=== PATIENT | female | born 1980 | race Caucasian/White ===

== ENCOUNTER 2019-11-06 12:11 | Inpatient (IN) | payer OTHER ==
[~2019-11-06] VITALS: Ht 162.6 cm; Wt 87.0 kg
[2019-11-06] MEDS ORDERED: DOCUSATE 100 MG CAPSULE PO PRN (13:30)
[2019-11-06] MEDS ORDERED: ONDANSETRON ODT 4 MG PO PRN (13:30)
[2019-11-06] MEDS ORDERED: PLEASE ENTER HEIGHT AND WEIGHT MC SCH (13:30)
[2019-11-06] MEDS ORDERED: PLEASE ENTER ALLERGIES MC SCH (13:30)
[2019-11-06] MEDS ORDERED: ENALAPRILAT 1.25 MG/ML, 2ML IVPush PRN (13:30)
[2019-11-06] MEDS ORDERED: ENOXAPARIN 40 MG/0.4 ML SQ SCH (13:30)
[2019-11-06] MEDS ORDERED: OMNIPAQUE 350 MG/ML, 50 ML BOTTLE ONE (13:35)
[2019-11-06] MEDS ORDERED: FERR324T5 PO (13:45)
[2019-11-06] MEDS ORDERED: ALBU8.5H8 IH (13:45)
[2019-11-06] MEDS ORDERED: LEVO150T5 PO (13:45)
[2019-11-06] MEDS: HYDROcodone/APAP 5/325 TABLET PO PRN ×2 (14:19→22:38)
[2019-11-06] MEDS: LACTATED RINGERS 1,000 ML IV SCH ×2 (14:20→19:26)
[2019-11-06] MEDS ORDERED: ALBUTEROL HFA 90 MCG/SPRAY INH PRN (14:30)
[2019-11-06 14:32] VITALS: BP 122/79
[2019-11-06] MEDS ORDERED: MIDAZOLAM 1 MG/ML, 2ML ONE (15:14)
[2019-11-06] MEDS ORDERED: FENTANYL PF 250 MCG/5ML ONE (15:14)
[2019-11-06] MEDS ORDERED: PROPOFOL 50 ML ONE (15:14)
[2019-11-06] MEDS ORDERED: ROCURONIUM 10 MG/ML,10ML ONE (15:36)
[2019-11-06] MEDS ORDERED: CEFAZOLIN PMX 1GM/50ML ONE (15:36)
[2019-11-06] MEDS ORDERED: SUCCINYLCHOLINE 20 MG/ML, 10ML ONE (15:36)
[2019-11-06] MEDS ORDERED: DIPHENHYDRAMINE 50 MG/ML, 1ML IVPush PRN (16:00)
[2019-11-06] MEDS ORDERED: EPHEDRINE 50 MG/ML, 1ML IM PRN (16:00)
[2019-11-06] MEDS ORDERED: DIAZEPAM 5 MG/ML, 2ML IVPush PRN (16:00)
[2019-11-06] MEDS ORDERED: ONDANSETRON 2MG/ML, 2ML IVPush PRN (16:00)
[2019-11-06] MEDS ORDERED: OXYcodone 5 MG/5 ML ORAL.SOL UDC PO PRN (16:00)
[2019-11-06] MEDS ORDERED: LABETALOL 5MG/ML, 20ML IV PRN (16:00)
[2019-11-06] MEDS ORDERED: FENTANYL PF 100 MCG/2ML IV PRN (16:00)
[2019-11-06] MEDS ORDERED: PROMETHAZINE 25 MG/ML, 1ML IVPush PRN (16:00)
[2019-11-06] MEDS ORDERED: MEPERIDINE/PF 25MG/0.5ML IVPush PRN (16:00)
[2019-11-06] MEDS ORDERED: HYDROmorphone 1 MG/ML, 1ML INJ IVPush PRN (16:00)
[2019-11-06] MEDS ORDERED: EPHEDRINE 50 MG/ML, 1ML IVPush PRN (16:00)
[2019-11-06] MEDS ORDERED: INDOMETHACIN 50 MG SUPP.RECT ONE (16:16)
[2019-11-06] MEDS ORDERED: INDOMETHACIN 50 MG SUPP.RECT PR ONE (16:30)
[2019-11-06] MEDS ORDERED: LACTATED RINGERS 1,000 ML IVBOLUS ONE ×2 (16:30)
[2019-11-06] MEDS ORDERED: [UNRECOGNIZED DRUG - REMARK] MC PRN (17:30)
[2019-11-06] MEDS: morphine SULFATE 10 MG/ML, 1ML IVPush PRN ×2 (17:49→23:37)
[2019-11-06 19:35] VITALS: BP 144/93
[2019-11-06 23:22] VITALS: BP 132/81
[2019-11-07 02:47] VITALS: BP 113/71
[2019-11-07 05:39] LABS: BASOPHILS # (AUTO) 0.03 x10^3/uL (0-0.1); BASOPHILS % (AUTO) 0 % (0-1); EOSINOPHILS # (AUTO) 0.01 x10^3/uL (0-0.4); EOSINOPHILS % (AUTO) 0 % (1-7); LYMPHOCYTES # (AUTO) 0.81 x10^3/uL (1-3.4); LYMPHOCYTES % (AUTO) 10 % (22-44); MD NO; MEAN CORPUSCULAR HEMOGLOBIN 26.5 pg (27.0-34.8); MEAN CORPUSCULAR HGB CONC 32.6 g/dL (32.4-35.8); MEAN CORPUSCULAR VOLUME 81.4 fL (80-100); MEAN PLATELET VOLUME 10.5 fL (7.4-10.4); MONOCYTES # (AUTO) 0.51 x10^3/uL (0.2-0.8); MONOCYTES % (AUTO) 6 % (2-9); NEUTROPHILS # (AUTO) 6.91 x10^3/uL (1.8-6.8); NEUTROPHILS % (AUTO) 84 % (42-75); PLATELET COUNT 227 x10^3/uL (130-400); RED BLOOD COUNT 3.21 x10^6/uL (3.82-5.3); RED CELL DISTRIBUTION WIDTH 14.7 % (9.6-15.2)
[2019-11-07 05:48] LABS: ALBUMIN 2.5 g/dL (3.4-5.0); ANION GAP 6 mmol/L (5-15); CALCIUM 8.4 mg/dL (8.5-10.1); CHLORIDE 110 mmol/L (98-107)
[2019-11-07 05:53] LABS: ALANINE AMINOTRANSFERASE 61 U/L (12-78); ALKALINE PHOSPHATASE 95 U/L (45-117); BILIRUBIN,TOTAL 0.6 mg/dL (0.2-1.0); CREATININE 0.62 mg/dL (0.55-1.02)
[2019-11-07] MEDS: LEVOTHYROXINE 150 MCG TABLET PO SCH (06:26)
[2019-11-07 07:00] VITALS: BP 113/75
[2019-11-07] MEDS: FERROUS SULFATE 325 MG TABLET PO SCH (08:00)
[2019-11-07] MEDS: morphine SULFATE 10 MG/ML, 1ML IVPush PRN (08:34)
[2019-11-07 11:16] VITALS: BP 122/79
[2019-11-07] MEDS: SENNA/DOCUSATE TABLET PO SCH (11:23)
[2019-11-07] MEDS: LACTATED RINGERS 1,000 ML IV SCH (11:30)
[2019-11-07 14:50] VITALS: BP 104/64
[2019-11-07 20:26] VITALS: BP 109/66
[2019-11-07] MEDS: LACTULOSE 10 GM/15 ML UDC PO SCH (20:46)
[2019-11-07] MEDS: ONDANSETRON 2MG/ML, 2ML IVPush PRN (20:51)
[2019-11-07] MEDS: HYDROcodone/APAP 5/325 TABLET PO PRN (20:56)
[2019-11-08] MEDS: LACTATED RINGERS 1,000 ML IV SCH (00:58)
[2019-11-08] MEDS: ACETAMINOPHEN 325 MG TABLET PO PRN ×3 (01:01→19:55)
[2019-11-08] MEDS: DIPHENHYDRAMINE 25 MG CAPSULE PO PRN ×2 (01:01→19:54)
[2019-11-08 02:18] VITALS: BP 103/65
[2019-11-08] MEDS: LEVOTHYROXINE 150 MCG TABLET PO SCH (06:11)
[2019-11-08] MEDS: LACTULOSE 10 GM/15 ML UDC PO SCH ×2 (07:45→20:17)
[2019-11-08] MEDS: FERROUS SULFATE 325 MG TABLET PO SCH (07:45)
[2019-11-08] MEDS: SENNA/DOCUSATE TABLET PO SCH (07:45)
[2019-11-08 07:56] VITALS: BP 110/71
[2019-11-08 12:39] VITALS: BP 120/78
[2019-11-08] MEDS: morphine SULFATE 10 MG/ML, 1ML IVPush PRN ×5 (12:46→19:02)
[2019-11-08] MEDS ORDERED: MORPHINE SULFATE 4 MG/ML, 1ML ONE (13:21)
[2019-11-08] MEDS ORDERED: OMNIPAQUE 350 MG/ML, 100ML BOTTLE ONE (13:54)
[2019-11-08] MEDS ORDERED: FLUMAZENIL 0.1 MG/1 ML, 5ML ONE (14:05)
[2019-11-08] MEDS ORDERED: FENTANYL PF 100 MCG/2ML ONE (14:05)
[2019-11-08] MEDS ORDERED: MIDAZOLAM 1 MG/ML, 5ML ONE (14:05)
[2019-11-08] MEDS ORDERED: NALOXONE 1 MG/ML, 2ML ONE (14:05)
[2019-11-08] MEDS ORDERED: LIDOCAINE 1%, 10ML ONE (14:09)
[2019-11-08 15:00] VITALS: BP 104/67
[2019-11-08 15:26] LABS: ANION GAP 5 mmol/L (5-15); CALCIUM 8.1 mg/dL (8.5-10.1); CHLORIDE 113 mmol/L (98-107); CREATININE 0.61 mg/dL (0.55-1.02)
[2019-11-08 15:29] LABS: MEAN CORPUSCULAR HEMOGLOBIN 26.4 pg (27.0-34.8); MEAN CORPUSCULAR HGB CONC 32.6 g/dL (32.4-35.8); MEAN PLATELET VOLUME 9.6 fL (7.4-10.4); PLATELET COUNT 249 x10^3/uL (130-400); RED BLOOD COUNT 3.33 x10^6/uL (3.82-5.3); RED CELL DISTRIBUTION WIDTH 14.8 % (9.6-15.2)
[2019-11-08 16:30] VITALS: BP 129/75
[2019-11-08 16:38] LABS: BASOPHILS # (AUTO) 0.06 x10^3/uL (0-0.1); BASOPHILS % (AUTO) 0 % (0-1); EOSINOPHILS # (AUTO) 0.08 x10^3/uL (0-0.4); EOSINOPHILS % (AUTO) 1 % (1-7); LYMPHOCYTES # (AUTO) 1.06 x10^3/uL (1-3.4); LYMPHOCYTES % (AUTO) 7 % (22-44); MD SCAN; MONOCYTES % (AUTO) 8 % (2-9); NEUTROPHILS # (AUTO) 12.03 x10^3/uL (1.8-6.8); NEUTROPHILS % (AUTO) 84 % (42-75)
[2019-11-08] MEDS: DIAZEPAM 5 MG/ML, 2ML IV PRN (17:01)
[2019-11-08] MEDS: CEFTRIAXONE PMX 1GM/50ML 50 ML IV SCH (17:22)
[2019-11-08] MEDS: METRONIDAZOLE PMX 500MG/100ML 100 ML IV SCH (18:01)
[2019-11-08 19:57] VITALS: BP 98/63
[2019-11-08] MEDS: ONDANSETRON 2MG/ML, 2ML IVPush PRN (21:31)
[2019-11-09 01:00] VITALS: BP 99/60
[2019-11-09] MEDS: morphine SULFATE 10 MG/ML, 1ML IVPush PRN ×3 (01:11→15:50)
[2019-11-09] MEDS: METOCLOPRAMIDE 5 MG/ML, 2ML IVPush PRN ×4 (01:11→17:28)
[2019-11-09] MEDS: ACETAMINOPHEN 325 MG TABLET PO PRN ×4 (01:19→22:02)
[2019-11-09] MEDS: METRONIDAZOLE PMX 500MG/100ML 100 ML IV SCH ×3 (02:05→18:24)
[2019-11-09 02:08] LABS: MICROSCOPIC NOT IND
[2019-11-09] MEDS: ONDANSETRON 2MG/ML, 2ML IVPush PRN ×3 (03:55→22:02)
[2019-11-09 03:58] VITALS: BP 90/56
[2019-11-09] MEDS: LEVOTHYROXINE 150 MCG TABLET PO SCH (05:51)
[2019-11-09 08:29] VITALS: BP 100/66
[2019-11-09] MEDS: LACTULOSE 10 GM/15 ML UDC PO SCH ×2 (09:22→21:00)
[2019-11-09] MEDS: CYCLOBENZAPRINE 10 MG TABLET PO PRN ×2 (09:22→22:02)
[2019-11-09] MEDS: FERROUS SULFATE 325 MG TABLET PO SCH (09:22)
[2019-11-09] MEDS: SENNA/DOCUSATE TABLET PO SCH (09:22)
[2019-11-09] MEDS ORDERED: VANCOMYCIN PER PHARMACY MC PRN (13:30)
[2019-11-09 13:33] VITALS: BP 102/56
[2019-11-09] MEDS ORDERED: PHARMACOKINETIC MONITORING MC PRN (14:00)
[2019-11-09 15:11] LABS: HCT (SEDRATE) 25.7 % (34.6-47.8)
[2019-11-09] MEDS: VANCOMYCIN 1,800 MG in SODIUM CHLORIDE 0.9% 250 ML IV SCH (15:50)
[2019-11-09] MEDS ORDERED: KETOROLAC 30 MG/1 ML IM PRN (16:30)
[2019-11-09] MEDS ORDERED: FAMOTIDINE 20 MG TABLET PO ONE (17:00)
[2019-11-09 17:29] VITALS: BP 106/69
[2019-11-09] MEDS: CEFTRIAXONE PMX 1GM/50ML 50 ML IV SCH (17:34)
[2019-11-09 21:45] VITALS: BP 95/59
[2019-11-09] MEDS: DIPHENHYDRAMINE 25 MG CAPSULE PO PRN (22:02)
[2019-11-10] MEDS: METRONIDAZOLE PMX 500MG/100ML 100 ML IV SCH ×2 (01:33→09:58)
[2019-11-10] MEDS: KETOROLAC 30 MG/1 ML IVPush PRN ×4 (01:33→20:40)
[2019-11-10 01:34] VITALS: BP 101/69
[2019-11-10] MEDS: VANCOMYCIN 1,800 MG in SODIUM CHLORIDE 0.9% 250 ML IV SCH (03:35)
[2019-11-10] MEDS: ACETAMINOPHEN 325 MG TABLET PO PRN ×4 (05:19→22:34)
[2019-11-10] MEDS: LEVOTHYROXINE 150 MCG TABLET PO SCH (05:19)
[2019-11-10 05:46] LABS: BASOPHILS # (AUTO) 0.09 x10^3/uL (0-0.1); BASOPHILS % (AUTO) 1 % (0-1); EOSINOPHILS # (AUTO) 0.21 x10^3/uL (0-0.4); EOSINOPHILS % (AUTO) 2 % (1-7); LYMPHOCYTES # (AUTO) 1.12 x10^3/uL (1-3.4); LYMPHOCYTES % (AUTO) 11 % (22-44); MD NO; MEAN CORPUSCULAR HEMOGLOBIN 26.3 pg (27.0-34.8); MEAN CORPUSCULAR HGB CONC 32.4 g/dL (32.4-35.8); MEAN CORPUSCULAR VOLUME 81.1 fL (80-100); MEAN PLATELET VOLUME 10.2 fL (7.4-10.4); MONOCYTES # (AUTO) 0.62 x10^3/uL (0.2-0.8); MONOCYTES % (AUTO) 6 % (2-9); NEUTROPHILS # (AUTO) 8.52 x10^3/uL (1.8-6.8); NEUTROPHILS % (AUTO) 81 % (42-75); PLATELET COUNT 221 x10^3/uL (130-400); RED BLOOD COUNT 3.31 x10^6/uL (3.82-5.3); RED CELL DISTRIBUTION WIDTH 15.1 % (9.6-15.2)
[2019-11-10 05:56] LABS: ALBUMIN 2.2 g/dL (3.4-5.0); ANION GAP 7 mmol/L (5-15); CALCIUM 8.2 mg/dL (8.5-10.1); CHLORIDE 111 mmol/L (98-107)
[2019-11-10 06:00] LABS: ALANINE AMINOTRANSFERASE 28 U/L (12-78); ALKALINE PHOSPHATASE 93 U/L (45-117); BILIRUBIN,TOTAL 0.6 mg/dL (0.2-1.0); CREATININE 0.68 mg/dL (0.55-1.02); TOTAL PROTEIN 5.8 g/dL (6.4-8.2)
[2019-11-10] MEDS: LACTULOSE 10 GM/15 ML UDC PO SCH ×2 (07:14→20:40)
[2019-11-10] MEDS: SENNA/DOCUSATE TABLET PO SCH (07:15)
[2019-11-10] MEDS ORDERED: POTASSIUM CHLORIDE 40 MEQ in SODIUM CHLORIDE 0.9% 500 ML IV ONE (07:30)
[2019-11-10] MEDS: FERROUS SULFATE 325 MG TABLET PO SCH (07:34)
[2019-11-10] MEDS: CYCLOBENZAPRINE 10 MG TABLET PO PRN (07:35)
[2019-11-10 07:44] VITALS: BP 103/69
[2019-11-10 13:46] VITALS: BP 100/55
[2019-11-10] MEDS: AMPICILLIN/SULBACTAM 3 GM in SODIUM CHLORIDE 0.9% 100 ML IV SCH ×2 (15:26→20:40)
[2019-11-10 18:06] LABS: BASOPHILS # (AUTO) 0.03 x10^3/uL (0-0.1); BASOPHILS % (AUTO) 0 % (0-1); EOSINOPHILS # (AUTO) 0.26 x10^3/uL (0-0.4); EOSINOPHILS % (AUTO) 3 % (1-7); LYMPHOCYTES # (AUTO) 1.13 x10^3/uL (1-3.4); LYMPHOCYTES % (AUTO) 12 % (22-44); MD NO; MEAN CORPUSCULAR HEMOGLOBIN 26.2 pg (27.0-34.8); MEAN CORPUSCULAR HGB CONC 32.2 g/dL (32.4-35.8); MEAN CORPUSCULAR VOLUME 81.2 fL (80-100); MEAN PLATELET VOLUME 10.1 fL (7.4-10.4); MONOCYTES # (AUTO) 0.41 x10^3/uL (0.2-0.8); MONOCYTES % (AUTO) 4 % (2-9); NEUTROPHILS # (AUTO) 7.69 x10^3/uL (1.8-6.8); NEUTROPHILS % (AUTO) 81 % (42-75); PLATELET COUNT 288 x10^3/uL (130-400); RED BLOOD COUNT 3.44 x10^6/uL (3.82-5.3); RED CELL DISTRIBUTION WIDTH 15.2 % (9.6-15.2)
[2019-11-10 18:10] LABS: ALBUMIN 2.6 g/dL (3.4-5.0); ANION GAP 7 mmol/L (5-15); CALCIUM 8.4 mg/dL (8.5-10.1); CHLORIDE 111 mmol/L (98-107)
[2019-11-10 18:13] LABS: ALANINE AMINOTRANSFERASE 30 U/L (12-78); ALKALINE PHOSPHATASE 116 U/L (45-117); BILIRUBIN,TOTAL 0.4 mg/dL (0.2-1.0); CREATININE 0.81 mg/dL (0.55-1.02)
[2019-11-10 20:01] VITALS: BP 108/63
[2019-11-10] MEDS: DIPHENHYDRAMINE 25 MG CAPSULE PO PRN (20:40)
[2019-11-10] MEDS: DIAZEPAM 5 MG/ML, 2ML IV PRN (22:37)
[2019-11-11 01:31] VITALS: BP 114/74
[2019-11-11] MEDS: ACETAMINOPHEN 325 MG TABLET PO PRN ×3 (02:49→19:29)
[2019-11-11] MEDS: KETOROLAC 30 MG/1 ML IVPush PRN ×3 (02:49→20:26)
[2019-11-11] MEDS: AMPICILLIN/SULBACTAM 3 GM in SODIUM CHLORIDE 0.9% 100 ML IV SCH ×4 (02:49→20:26)
[2019-11-11] MEDS: LEVOTHYROXINE 150 MCG TABLET PO SCH (06:33)
[2019-11-11 06:38] VITALS: BP 125/87
[2019-11-11] MEDS: LACTULOSE 10 GM/15 ML UDC PO SCH ×2 (08:31→20:26)
[2019-11-11] MEDS: SENNA/DOCUSATE TABLET PO SCH (08:31)
[2019-11-11] MEDS: FERROUS SULFATE 325 MG TABLET PO SCH (08:32)
[2019-11-11] MEDS ORDERED: ZOLPIDEM 5MG TABLET PO PRN (12:00)
[2019-11-11 12:48] VITALS: BP 123/78
[2019-11-11 19:19] VITALS: BP 142/86
[2019-11-12] MEDS: AMPICILLIN/SULBACTAM 3 GM in SODIUM CHLORIDE 0.9% 100 ML IV SCH ×4 (03:00→20:57)
[2019-11-12] MEDS: ACETAMINOPHEN 325 MG TABLET PO PRN ×3 (03:00→20:58)
[2019-11-12] MEDS: CYCLOBENZAPRINE 10 MG TABLET PO PRN (03:00)
[2019-11-12 03:06] VITALS: BP 136/87
[2019-11-12] MEDS: CALCIUM CARBONATE 500 MG TAB.CHEW PO PRN (03:28)
[2019-11-12] MEDS: LEVOTHYROXINE 150 MCG TABLET PO SCH (05:56)
[2019-11-12 08:01] VITALS: BP 142/91
[2019-11-12] MEDS: LACTULOSE 10 GM/15 ML UDC PO SCH ×2 (08:30→20:57)
[2019-11-12] MEDS: SENNA/DOCUSATE TABLET PO SCH (08:31)
[2019-11-12] MEDS: FERROUS SULFATE 325 MG TABLET PO SCH (08:31)
[2019-11-12 13:21] VITALS: BP 131/83
[2019-11-12] MEDS ORDERED: OMNIPAQUE 350 MG/ML, 100ML BOTTLE ONE (13:56)
[2019-11-12 19:24] VITALS: BP 132/85
[2019-11-13 01:46] VITALS: BP 129/79
[2019-11-13] MEDS: AMPICILLIN/SULBACTAM 3 GM in SODIUM CHLORIDE 0.9% 100 ML IV SCH ×2 (02:59→10:23)
[2019-11-13] MEDS: CALCIUM CARBONATE 500 MG TAB.CHEW PO PRN (03:04)
[2019-11-13] MEDS: ONDANSETRON 2MG/ML, 2ML IVPush PRN (03:04)
[2019-11-13] MEDS: LEVOTHYROXINE 150 MCG TABLET PO SCH (06:10)
[2019-11-13] MEDS: ACETAMINOPHEN 325 MG TABLET PO PRN (06:10)
[2019-11-13] MEDS: KETOROLAC 30 MG/1 ML IVPush PRN (06:10)
[2019-11-13 06:49] LABS: ALBUMIN 2.5 g/dL (3.4-5.0); ANION GAP 5 mmol/L (5-15); CALCIUM 8.5 mg/dL (8.5-10.1); CHLORIDE 111 mmol/L (98-107)
[2019-11-13 06:55] LABS: ALANINE AMINOTRANSFERASE 30 U/L (12-78); ALKALINE PHOSPHATASE 77 U/L (45-117); BILIRUBIN,TOTAL 0.3 mg/dL (0.2-1.0); CREATININE 0.68 mg/dL (0.55-1.02); TOTAL PROTEIN 6.2 g/dL (6.4-8.2)
[2019-11-13 07:31] VITALS: BP 143/87
[2019-11-13] MEDS: LACTULOSE 10 GM/15 ML UDC PO SCH (08:20)
[2019-11-13] MEDS: SENNA/DOCUSATE TABLET PO SCH (08:21)
[2019-11-13] MEDS: FERROUS SULFATE 325 MG TABLET PO SCH (08:21)
[2019-11-13] MEDS ORDERED: IBUP100O32 PO (10:29)
[2019-11-13] MEDS ORDERED: DAPTOMYCIN 520 MG in SODIUM CHLORIDE 0.9% 100 ML IVPB SCH (10:30)
[2019-11-13 12:42] VITALS: BP 125/85
== END 2019-11-13 14:00 | disposition home or self-care (01) | DRG 393 ==
LOC: PREOBSVTOIN 12:12 → 4NE 13:10
PROVIDERS: ADMIT Hospitalist; ATTEND Family Medicine
PROC: BF111ZZ Fluoroscopy of Biliary and Pancreatic Ducts using Low Osmolar Contrast (ICD-10-PCS; 2019-11-06)
PROC: 0F798DZ Dilation of Common Bile Duct with Intraluminal Device, Via Natural or Artificial Opening Endoscopic (ICD-10-PCS; principal; 2019-11-06 15:00)
PROC: 0F9430Z Drainage of Gallbladder with Drainage Device, Percutaneous Approach (ICD-10-PCS; 2019-11-08)
PROC: 02HV33Z Insertion of Infusion Device into Superior Vena Cava, Percutaneous Approach (ICD-10-PCS; 2019-11-08)
PROC: B548ZZA Ultrasonography of Superior Vena Cava, Guidance (ICD-10-PCS; 2019-11-08)
PROC: B518ZZA Fluoroscopy of Superior Vena Cava, Guidance (ICD-10-PCS; 2019-11-08)
PROC: 0FP4X0Z Removal of Drainage Device from Gallbladder, External Approach (ICD-10-PCS; 2019-11-08)
DX: K91.89 Other postprocedural complications and disorders of digestive system (principal); K65.1 Peritoneal abscess; T81.44XA Sepsis following a procedure, initial encounter; J44.1 Chronic obstructive pulmonary disease with (acute) exacerbation; K81.0 Acute cholecystitis; Z20.828 Contact with and (suspected) exposure to other viral communicable diseases; B95.2 Enterococcus as the cause of diseases classified elsewhere; Y83.8 Other surgical procedures as the cause of abnormal reaction of the patient, or of later complication, without mention of misadventure at the time of the procedure; D50.9 Iron deficiency anemia, unspecified; E03.9 Hypothyroidism, unspecified; E87.6 Hypokalemia; I10 Essential (primary) hypertension; I34.1 Nonrheumatic mitral (valve) prolapse; D50.0 Iron deficiency anemia secondary to blood loss (chronic); N92.0 Excessive and frequent menstruation with regular cycle; J45.20 Mild intermittent asthma, uncomplicated; Z90.49 Acquired absence of other specified parts of digestive tract; Z79.899 Other long term (current) drug therapy; Z82.5 Family history of asthma and other chronic lower respiratory diseases; Z82.49 Family history of ischemic heart disease and other diseases of the circulatory system; Z95.2 Presence of prosthetic heart valve
CPT/HCPCS: 36415; 74328; 75989; J3490; 36573; 47537; 49406; 74160; 74177; 76942; 80048; 80053; 81003; 81025; 83735; 85025; 85651; 86140; 87040; 87070; 87075; 87077; 87186; 87205; 87635; 99156; 99157; C1894; G0378; J0295; J0690; J0696; J0878; J1885; J2250; J2405; J2704; J3010; J3360; J3370; J3480; Q0162; Q9967; C1729; C1751; C1769; C2625; J0330; J2270; J2310; J2765; J7040; J7050; J7120; Q0163

== ENCOUNTER 2020-03-22 08:04 | Day surgery (SDC) | payer OTHER ==
[2020-03-19 14:56] LABS: BASOPHILS % (AUTO) 0 % (0-1); EOSINOPHILS % (AUTO) 2 % (1-7); LYMPHOCYTES % (AUTO) 26 % (22-44); MEAN CORPUSCULAR HEMOGLOBIN 27.3 pg (27.0-34.8); MEAN CORPUSCULAR HGB CONC 33.4 g/dL (32.4-35.8); MEAN PLATELET VOLUME 9.3 fL (7.4-10.4); MONOCYTES % (AUTO) 5 % (2-9); NEUTROPHILS % (AUTO) 67 % (42-75); PLATELET COUNT 274 x10^3/uL (130-400); RED BLOOD COUNT 4.37 x10^6/uL (3.82-5.3); RED CELL DISTRIBUTION WIDTH 13.5 % (9.6-15.2)
[2020-03-19 15:02] LABS: MD NO
[~2020-03-22] VITALS: Ht 162.6 cm; Wt 87.0 kg
[~2020-03-22 08:04] MED LIST: ALBU8.5H8 IH; CHOL10003 PO; FERR324T5 PO; IBUP100O32 PO; LEVO125T5 PO; LEVO150T5 PO
[2020-03-22 08:28] VITALS: BP 129/83
[2020-03-22] MEDS ORDERED: LACTATED RINGERS 1,000 ML IV SCH (08:30)
[2020-03-22] MEDS ORDERED: CHLORHEXIDINE 15 ML UDC MM ONE (08:30)
[2020-03-22 08:58] LABS: HCG UR SG 1.021 (1.003-1.030)
[2020-03-22] MEDS ORDERED: MIDAZOLAM 1 MG/ML, 2ML ONE (09:14)
[2020-03-22] MEDS ORDERED: FENTANYL PF 250 MCG/5ML ONE (09:14)
[2020-03-22] MEDS ORDERED: ONDANSETRON 2MG/ML, 2ML ONE (09:35)
[2020-03-22] MEDS ORDERED: NEOSTIGMINE 1 MG/ML, 10ML ONE (09:35)
[2020-03-22] MEDS ORDERED: ROCURONIUM 10MG/ML,5ML ONE (09:35)
[2020-03-22] MEDS ORDERED: DEXAMETHASONE 4 MG/ML, 1ML ONE (09:35)
[2020-03-22] MEDS ORDERED: GLYCOPYRROLATE 0.2MG/1ML, 5ML ONE (09:35)
[2020-03-22] MEDS ORDERED: OMNIPAQUE 350 MG/ML, 50 ML BOTTLE ONE (10:15)
[2020-03-22] MEDS ORDERED: INDOMETHACIN 50 MG SUPP.RECT ONE (10:16)
[2020-03-22] MEDS ORDERED: FENTANYL PF 100 MCG/2ML ONE (10:25)
[2020-03-22] MEDS: FENTANYL PF 100 MCG/2ML IV PRN ×2 (10:25→10:36)
[2020-03-22] MEDS ORDERED: ONDANSETRON 2MG/ML, 2ML IVPush PRN (10:30)
[2020-03-22] MEDS ORDERED: OXYcodone 5 MG/5 ML ORAL.SOL UDC PO PRN (10:30)
[2020-03-22] MEDS ORDERED: OXYcodone 5 MG/5 ML ORAL.SOL UDC ONE (10:54)
[2020-03-22] MEDS ORDERED: PROPOFOL 50 ML ONE ×2 (10:55→11:05)
[2020-03-22] MEDS ORDERED: INDOMETHACIN 50 MG SUPP.RECT PR ONE (11:00)
[2020-03-22] MEDS ORDERED: LACTATED RINGERS 1,000 ML IVBOLUS ONE (11:00)
== END 2020-03-22 12:35 | disposition home or self-care (01) ==
LOC: OUT 08:04
PROVIDERS: ATTEND Internal Medicine Gastroenterology
DX: T85.590A Other mechanical complication of bile duct prosthesis, initial encounter (principal); I10 Essential (primary) hypertension; J45.909 Unspecified asthma, uncomplicated; E03.9 Hypothyroidism, unspecified; Z20.822 Contact with and (suspected) exposure to COVID-19; Z79.890 Hormone replacement therapy; Z79.899 Other long term (current) drug therapy; Z88.5 Allergy status to narcotic agent; Z88.2 Allergy status to sulfonamides; Z90.49 Acquired absence of other specified parts of digestive tract; Y83.8 Other surgical procedures as the cause of abnormal reaction of the patient, or of later complication, without mention of misadventure at the time of the procedure
CPT/HCPCS: 36415; 43275; 43277; 74328; 81025; 85025; J1100; J2250; J2405; J2704; J2710; J3010; J7120; Q9967; U0003